=== PATIENT | female | born 1940 | race Caucasian/White ===

== ENCOUNTER 2018-09-28 13:48 | Emergency (ER) | payer MEDICARE, BC ==
--- NOTE | 2018-09-28 14:18 | ER Report ---
History and Physical Time Seen By MD: 14:18 Hx. of Stated Complaint: headache HPI/ROS CHIEF COMPLAINT: pains in left rastafari HISTORY OF PRESENT ILLNESS: This is a 78 year old female. She was seen at urgent care. Had sudden onset of sudden "explosions" of pain in the left rastafari. Last for a few seconds then gone. Have been coming multiple times, but seeming to be less frequent now than earlier today. She has had this in the past one other time, but not as many episodes. This was years ago. Era labs at urgent care including a normal ESR, CRP, CBC, and CMP. She was sent here for the possibility of further imaging being needed for other vascular or neurologic problem, considering possible CTA or MRI/MRA. The patient has no vision changes and vision exam was normal at urgent care. She has no pain right now. She has no dizziness. She denies fevers or chills. No shortness of breath. No cough, sore throat or runny nose. No chest pain or palpitations. She is temporarily here in [place] from out of town working on a job which will keep her here for a couple of months. Allergies: Coded Allergies: No Known Allergies (Verified Allergy, Unknown, 09/28/18) Constitutional Vital Sign - Last 24 Hours 09/28/18 14:37 Temp 97.9 Pulse 74 Resp 14 B/P (MAP) 149/86 (107) Pulse Ox 95 Physical Exam Vital signs stable, other than blood pressure a little high. General: Alert, no acute distress. Neuro: Alert and oriented, no focal deficits noted during our conversation. Medical Decision Making ED Course/Re-evaluation ED Course After our brief conversation, her main question was what benefit further imaging would be for her. We talked about various things that we would be looking for. We talked about other disorders such as temporal arteritis and other neuritis/neuropathies that could be involved and typical treatments for these such as Prednisone for the temporal arteritis. We talked about course and complications for different things, including loss of vision. After our conversation, she would prefer to watch and wait. She will return if she has any further problems and will follow-up with her regular doctor upon return home. No further evaluation done and because of the limited evaluation and being sent from urgent care without us adding much to her evaluation, I asked administration if her charges could be dropped. Decision to Disposition Date: Sep 28, 2018 Decision to Disposition Time: 14:30 Depart Departure Latest Vital Signs Vital Signs Date Time Temp Pulse Resp B/P (MAP) Pulse Ox O2 Delivery O2 Flow Rate FiO2 09/28/18 14:37 97.9 74 14 149/86 (107) 95 Impression: Primary Impression: Neuralgia Condition: Improved Disposition: HOME OR SELF-CARE Additional Instructions: We do not know what is causing the sudden sharp pain in your rastafari area. Labs done at urgent care were negative. This could be inflammation in the blood vessels or nerves in the area causing pain. The most likely cause would be a neuritis. We often treat these conditions with a steroid medication like Prednisone. In this case, you have elected to watch and see how this does without further workup or medication. Return to the ER for worsening symptoms such as headache, vision changes, problems with speech or swallowing, loss of sensation in a part of the body, or weakness. Please follow-up with your regular doctor upon returning home. KELLIE HUGHES MD Sep 28, 2018 14:18
[2018-09-28 14:37] VITALS: BP 149/86
== END 2018-09-28 14:41 | disposition home or self-care (01) ==
LOC: ER 14:17
DX: M79.2 Neuralgia and neuritis, unspecified (principal)
CPT/HCPCS: 99281

== ENCOUNTER → 2018-09-28 | Outpatient (REF) | payer MEDICARE, BC ==
[2018-09-28 12:46] LABS: PLATELET COUNT, AUTOMATED 194 K/uL (150-450)
== END ==
PROVIDERS: ATTEND Family Medicine
DX: R51 Headache (principal)
CPT/HCPCS: 82040; 82247; 82310; 82374; 82435; 82565; 82947; 84075; 84132; 84155; 84295; 84450; 84460; 84520; 85025; 85651; 86140